=== PATIENT | male | born 1960 | race African-American/Black ===

== ENCOUNTER 2023-01-05 18:35 | Emergency (ER) | payer OTHER, SELFPAY ==
[2023-01-05 19:00] VITALS: BP 182/90; PULSE 89; RESP 18; TEMP 36.6; O2SAT 98; BMI 23.7
--- NOTE | 2023-01-05 19:05 | ED.EYEPROB ---
HPI - Eye Problem General Chief complaint: Eye Problems Stated complaint: fixing car, has object in eye Time Seen by Provider: 01/05/23 19:36 Source: patient Mode of arrival: ambulatory Limitations: no limitations History of Present Illness chief complaint: eye pain Onset (ago): hour(s) (2) Onset description: sudden Duration: constant Location: right eye Eye Symptoms: burning, redness, pain, discharge and blurry vision Place: home Mechanism: direct trauma Severity: moderate If Pain, Quality: sharp and burning Context: trauma Associated symptoms: none Treatments Prior to Arrival: none Related Data Previous Rx's Medication Instructions Recorded erythromycin 5 mg/gram (0.5 %) eye 0.5 inch ophthalmic (eye) .hs #3.5 01/05/23 ointment grams polymyxin B sulfate 10,000 1 drp ophthalmic-Right QID 7 days 01/05/23 unit-trimethoprim 1 mg/mL eye #10 mL drops (Polytrim) Allergies Allergy/AdvReac Type Severity Reaction Status Date / Time No Known Allergies Allergy Verified 01/05/23 19:04 Review of Systems Review of Systems: CONSTITUTIONAL: Denies weight loss, fever and chills. HEENT: + vision and - hearing. RESPIRATORY: Denies SOB and cough. CV: Denies palpitations no CP. GI: Denies abdominal pain, nausea, vomiting and diarrhea. : Denies dysuria and urinary frequency. MSK: Denies myalgia and joint pain. SKIN: Denies rash and pruritus. NEUROLOGICAL: Denies headache and syncope. PSYCHIATRIC: Denies recent changes in mood. Denies anxiety and depression. All other ROS are negative unless in HPI PMFSH Social History Social History Advance Directives: No Advance Directives Information Provided: Yes Physical Exam Vital Signs: Vital Signs: Last Vital Signs Temp 97.8 F 01/05/23 19:00 Pulse 89 01/05/23 19:00 Resp 18 01/05/23 19:00 BP 182/90 H 01/05/23 19:00 Pulse Ox 98 01/05/23 19:00 O2 Del Method Room Air 01/05/23 19:00 BMI result Body Mass Index 23.7 GEN: Well developed, no acute distress, alert, oriented HEENT: Normocephalic, atraumatic, normal external ears, nose appears normal, right eye conjunctival injection, no foreign bodies visualized, fluorescein exam without any evidence of corneal abrasion Eyes: Normal to appearance Neck: Supple, no lymphadenopathy Respiratory: Talks in complete sentences, no respiratory distress Extremities: No clubbing cyanosis or edema Neurologic: No focal neurologic deficits, cranial nerves 2-12 intact, gait normal Skin: No rash Course Course Course Narrative: RME - 62 yo male presenting with right eye pain, Fb sensation and redness after he was working on his car and feels like something got stuck in there. +blurred vision Plan: eye exam in [facility] [place] Reevaluation(s) Reevaluation #1: An ocular exam was unremarkable however suspect some form of conjunctivitis acute irritant conjunctivitis., will refer to Ophthalmology. Will start patient on topical antibiotics. Patient's tetanus vaccination was 1 year ago. Time: 20:15 Medical Decision Making Medical Decision Making [facility] Narrative: Patient presents with right eye pain. Differential diagnosis includes corneal abrasion, conjunctivitis, eye pain, unlikely to be got, given nature of injury. Examination did not clearly revealed corneal abrasion. Tetanus vaccinations up-to-date. Will start topical antibiotics and follow-up with Ophthalmology. Differential Diagnosis Differential Diagnoses: The differential diagnosis associated with the presentation includes (See above) Prescription Management I considered prescription management with: Antibiotic Discharge Plan Discharge Clinical Impression: Acute eye pain, Conjunctival abrasion Patient Disposition: Home, Self-Care Instructions: Corneal Abrasion (ED), Eye Pain (ED) Prescriptions: New erythromycin 5 mg/gram (0.5 %) ointment 0.5 inch ophthalmic (eye) .hs Qty: 3.5 0RF polymyxin B sulf-trimethoprim [Polytrim] 10,000 unit- 1 mg/mL drops 1 drp ophthalmic-Right QID 7 Days Qty: 10 0RF Rx Instructions: while awake; do not exceed 6 doses in 24 hours Referrals: Alfred Kelley [Physician] - 2 days
== END 2023-01-05 20:23 | disposition home or self-care (01) ==
PROVIDERS: Emergency Provider Emergency Medicine
DX: H57.11 Ocular pain, right eye (principal)
CPT/HCPCS: 99282; 99283